=== PATIENT | male | born 1955 | race Caucasian/White ===

== ENCOUNTER 2016-07-14 18:14 | Observation (INO) | payer OTHER, BC ==
--- NOTE | ~2016-07-14 | DS ---
Discharge Summary [address] [address] [place]. [address] NAME: ATUL BERG : 59 STATUS : DIS Sheron PAT#: [id number] AGE: 61 ADM/REG DATE : 07/14/16 MR#: [id number] REPORT SERV DATE: 07/16/16 DICTATED BY: MAYA FIGUEROA DATE: 07/15/16 REPORT STATUS : Draft TRANSCRIBED BY: MODL DATE: 07/15/16 ADMISSION DATE: 07/14/2016 DISCHARGE DATE: 07/15/2016 DISCHARGE DIAGNOSIS: 1. Syncopal episode. 2. Dehydration. HISTORY OF PRESENT ILLNESS: This is a 61-year-old male patient, who has recent acute gastroenteritis, came to the hospital after a syncopal episode. Please see dictated H and P. HOSPITAL COURSE: He was admitted to hospital with syncopal episode. Had echocardiogram which was showing mild diastolic dysfunction without significant left ventricular dysfunction or valvular heart disease. He was put on gentle hydration, had improvement. He had a CT of the abdomen and pelvis, did not show any significant abnormalities. After the hydration, he recovered well. He is not orthostatic. He was kept 24 hours for observation and cardiac tele. Did not show any abnormal rhythm. Had an echocardiogram which was negative. According to the history available, the patient already had a sleep study evaluation done, was not told to not have any sleep apnea. He started having loose stool yesterday. Stool for C. diff was checked, it was negative. Therefore, the patient is thought to have acute viral illness, syncopal episode related with dehydration. The patient will be discharged to home in stable condition. The patient maximized inpatient benefit. More likely, his mild temperature etiology is a viral illness. The patient is able to follow up outpatient. Therefore, the patient will be discharged home. DISCHARGE MEDICATIONS: Same as home medications. EKL/MODL Maya Figueroa M.D. / [id number] CC: Emma Freeman M.D.
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
[2016-07-14 22:19] LABS: BASOPHILS 0.1 %; BASOPHILS ABSOLUTE 0.01 10/3/uL (0.0-0.16); EOSINOPHILS 0 %; HEMATOCRIT 47.6 % (40.0-51.0); HEMOGLOBIN 17.4 g/dL (13.6-17.8); IMMATURE GRANULOCYTES 0.2 %; IMMATURE GRANULOCYTES ABSOLUTE 0.02 10/3/uL (0.0-0.11); LYMPHOCYTES 4.7 %; MEAN CORPUSCULAR HEMOGLOB 32.7 pg (26.0-34.0); MEAN CORPUSCULAR VOLUME 89.5 fL (80-100); MEAN PLATELET VOLUME 8.5 fL (9.2-13.0); MONOCYTES 3.3 %; MONOCYTES ABSOLUTE 0.28 10/3/uL (0.21-1.20); NEUTROPHILS 91.7 %; NEUTROPHILS ABSOLUTE 7.82 10/3/uL (2.02-8.40); PLATELET COUNT 160 10/3/uL (150-400); RED CELL COUNT 5.32 10/6/uL (4.7-6.1)
[2016-07-14 22:24] LABS: ER CBC TAT 0 Hrs 00 Mins; MANUAL DIFF NO %; MEAN CORPUS HGB CONC 36.6 g/dL (32.0-36.0); WHITE BLOOD CELLS 8.5 10/3/uL (4.5-10.5)
[2016-07-14 22:27] LABS: INTERNATIONAL NORMAL RATI 1.1 UNITS (-); PARTIAL THROMBO TIME 24.9 SEC (22.5-37.2); PROTIME (NOT ORD) 13.7 SEC (12.0-14.5)
[2016-07-14 22:37] LABS: BUN (BLOOD UREA NITROGEN) 20 MG/DL (6-23); CALCIUM, SERUM 8.5 MG/DL (8.5-10.4); CHEST PAIN PROFILE TAT 0 Hrs 00 Mins; CHLORIDE, SERUM 94 MMOL/L (96-112); CO2 (CARBON DIOXIDE) 29 MMOL/L (24-34); CREATININE 1.06 MG/DL (0.70-1.30); GFR AFRICAN AMERICAN 89 ML/MIN (>=60); GFR NON AFRICAN AMERICAN 76 ML/MIN (>=60); GLUCOSE, SERUM 111 MG/DL (60-99); POTASSIUM, SERUM 3.5 MMOL/L (3.5-5.3); SODIUM, SERUM 132 MMOL/L (135-148); TROPONIN I <0.02 NG/ML (<0.05)
[2016-07-15] MEDS ORDERED: SYN125 PO (00:15)
[2016-07-15] MEDS ORDERED: PLEXUS BIO CLEANSE PO (00:16)
[2016-07-15] MEDS ORDERED: [UNRECOGNIZED DRUG - OTHER] PO (00:16)
[2016-07-15] MEDS ORDERED: D 5000 PO (00:17)
[2016-07-15] MEDS ORDERED: 8 HOUR650 MG PO (00:22)
[2016-07-15] MEDS ORDERED: FLONASE NAS (00:22)
[2016-07-15] MEDS ORDERED: TESTOSTERONE CREAM TOP (00:23)
[2016-07-15 06:12] LABS: HEMATOCRIT 43.5 % (40.0-51.0); HEMOGLOBIN 15.7 g/dL (13.6-17.8); MEAN CORPUS HGB CONC 36.1 g/dL (32.0-36.0); MEAN CORPUSCULAR HEMOGLOB 32.4 pg (26.0-34.0); MEAN CORPUSCULAR VOLUME 89.7 fL (80-100); MEAN PLATELET VOLUME 8.7 fL (9.2-13.0); PLATELET COUNT 165 10/3/uL (150-400); RBC DISTRIBUTION WIDTH 12.9 % (12.0-16.0); RED CELL COUNT 4.85 10/6/uL (4.7-6.1); WHITE BLOOD CELLS 6.6 10/3/uL (4.5-10.5)
[2016-07-15 06:14] LABS: MANUAL DIFF YES %
[2016-07-15 06:22] LABS: INTERNATIONAL NORMAL RATI 1.2 UNITS (-); PARTIAL THROMBO TIME 28.1 SEC (22.5-37.2); PROTIME (NOT ORD) 14.9 SEC (12.0-14.5)
[2016-07-15 06:33] LABS: A/G RATIO 1.2 (0.7-1.9); ALBUMIN 3.2 G/DL (3.5-5.0); ALKALINE PHOSPHATASE 69 U/L (45-117); BUN (BLOOD UREA NITROGEN) 17 MG/DL (6-23); CALCIUM, SERUM 8.1 MG/DL (8.5-10.4); CHLORIDE, SERUM 98 MMOL/L (96-112); CREATININE 0.78 MG/DL (0.70-1.30); FREE T4 0.97 NG/DL (0.76-1.46); GFR AFRICAN AMERICAN 115 ML/MIN (>=60); GFR NON AFRICAN AMERICAN 99 ML/MIN (>=60); GLOBULIN 2.7 G/DL (2.5-4.1); GLUCOSE, SERUM 108 MG/DL (60-99); SGOT(AST) 34 U/L (5-40); SGPT(ALT) 40 U/L (5-65); SODIUM, SERUM 133 MMOL/L (135-148); TOTAL BILIRUBIN 1.1 MG/DL (0-1.2); TOTAL PROTEIN 5.9 G/DL (6.0-8.5); TROPONIN I <0.02 NG/ML (<0.05)
[2016-07-15 06:34] LABS: CO2 (CARBON DIOXIDE) 22 MMOL/L (24-34); ULTRASENSITIVE TSH 0.901 MCIU/ML (0.358-3.740)
[2016-07-15 07:33] LABS: BAND NEUTROPHILS 15 %; LYMPHOCYTES 4 %; LYMPHOCYTES ABSOLUTE (CALC) 0.26 10/3/uL (0.67-4.30); MONOCYTES 8 %; MONOCYTES ABSOLUTE (CALC) 0.53 10/3/uL (0.21-1.20); NEUTROPHILS ABSOLUTE (CALC) 5.81 10/3/uL (2.02-8.40); PLATELET ESTIMATE ADQ (ADEQUATE); SEGMENTED NEUTROPHIL (0) 73 %; TOTAL NUCLEATED CELLS 100
[2016-07-15 07:34] LABS: RBC MORPHOLOGY NORM (NORMAL)
== END 2016-07-15 17:41 | disposition home or self-care (01) ==
LOC: ER 18:14 → 5NO 23:59
PROVIDERS: Emergency Medicine; Hospitalist
DX: R55 Syncope and collapse (principal); E86.0 Dehydration; E03.9 Hypothyroidism, unspecified; I44.4 Left anterior fascicular block; M19.90 Unspecified osteoarthritis, unspecified site; Z86.010 Personal history of colon polyps; M81.0 Age-related osteoporosis without current pathological fracture; Z79.899 Other long term (current) drug therapy
CPT/HCPCS: 70450; 72125; 74176; 80048; 80053; 83735; 84132; 84439; 84443; 84481; 84484; 85025; 85610; 85730; 87493; 87493-59; 93005; 93306; 96374; 99285; A9270-GY; G0378; J1170